=== PATIENT | male | born 1955 | race African-American/Black ===

== ENCOUNTER 2016-12-03 10:58 | Emergency (ER) | payer MEDICAID ==
[~2016-12-03] VITALS: Ht 182.9 cm; Wt 82.0 kg
[~2016-12-03 10:58] MED LIST: ASPI-1159 PO; ATEN-42 PO; ATOR20TA65 PO; INSU3INS6 SUBCUT; LEVO750T21 PO; LOPE2TAB26 MT; SPIR50TA26 PO
[2016-12-03] MEDS ORDERED: NITROFURANTOIN 100MG M/M CAPSULE PO ONE (11:30)
[2016-12-03 11:43] LABS: CLARITY URINE CLOUDY (CLEAR); GLUCOSE URINE 3+ (NEGATIVE); KETONES URINE NEGATIVE (NEGATIVE); LEUKOCYTE ESTERASE URINE 2+ (NEGATIVE); NITRITE URINE NEGATIVE (NEGATIVE); OCCULT BLOOD URINE 3+ (NEGATIVE); PH URINE 5.5 (4.5-8.0); PROTEIN URINE 1+ (NEGATIVE); SPECIFIC GRAVITY URINE 1.017 (1.005-1.030); UROBILINOGEN URINE 0.2 E.U./dL (0.2-1.0)
[2016-12-03 11:59] LABS: COLOR URINE BLOODY (YELLOW)
[2016-12-03 14:03] VITALS: BP 144/76
== END 2016-12-03 16:16 | disposition home or self-care (01) ==
LOC: ER 11:04
DX: N39.0 Urinary tract infection, site not specified (principal); E11.9 Type 2 diabetes mellitus without complications; I10 Essential (primary) hypertension; E78.00 Pure hypercholesterolemia, unspecified; M19.90 Unspecified osteoarthritis, unspecified site; F12.10 Cannabis abuse, uncomplicated; Z79.82 Long term (current) use of aspirin; Z79.4 Long term (current) use of insulin
CPT/HCPCS: 51702; 81001; 87077; 87086; 87186; 99284; Z7610; A4315